=== PATIENT | female | born 1995 | race Two or more races ===

== ENCOUNTER 2019-07-03 20:08 | Emergency (ER) | payer OTHER ==
[~2019-07-03] VITALS: Ht 165.1 cm; Wt 81.6 kg
[2019-07-03] MEDS ORDERED: LEVOTHYROXINE25 MCG (20:29)
== END 2019-07-03 22:44 | disposition home or self-care (01) ==
LOC: ER 20:08
DX: J00 Acute nasopharyngitis [common cold] (principal)

== ENCOUNTER 2023-04-15 19:37 | Emergency (ER) | payer OTHER ==
[~2023-04-15] VITALS: Ht 165.1 cm; Wt 88.5 kg
[~2023-04-15 19:37] MED LIST: LEVOTHYROXINE25 MCG
[2023-04-15 21:14] LABS: HEMATOCRIT 35.4 % (36.0-45.00); MEAN CELL VOLUME 78.7 fL (80.00-100.00); MEAN CORPUSCULAR HEMOGLOBIN 26.6 pg (27.00-32.0); MEAN CORPUSCULAR HGB CONC 33.8 g/dl (32.0-36.0); PLATELET COUNT 432 K/uL (150-450); RED BLOOD COUNT 4.49 M/uL (4.00-6.00); RED CELL DISTRIBUTION WIDTH 16.8 % (11.5-14.5)
[2023-04-15 21:27] LABS: PH,URINE 5.5 (5.0-8.0); URINE APPEARANCE Clear; URINE BILIRRUBIN Negative (NEGATIVE); URINE BLOOD Negative; URINE COLOR Yellow; URINE GLUCOSE Negative (NEGATIVE); URINE LEUKOCYTE Negative; URINE NITRATE Negative; URINE PROTEIN Negative (NEGATIVE); URINE UROBILINOGEN 0.2 E.U./dl
[2023-04-15 21:28] LABS: URINE BACTERIA 1121.3 uL (0.0-1933); URINE EPITHELIAL CELLS 6.4 uL (0.0-38.8); URINE RBC 7.1 uL (0.0-20.8); URINE WBC 10.3 uL (0.0-23.2)
[2023-04-15 21:34] LABS: ALT/SGPT 18 U/L (12-78); ANION GAP 9 (10.0-20.0); AST/SGOT 16 U/L (15-37); BILIRUBIN TOTAL 0.21 mg/dL (0.3-1.2); BILIRUBIN,CONJUGATED < 0.10 mg/dL (0.0-0.2); BILIRUBIN,UNCONJUGATED 0.11 mg/dL (0.0-0.6); BLOOD UREA NITROGEN 18 mg/dL (7-18); BUN CREA RATIO 16 (7.0-25.0); CALCIUM 8.9 mg/dL (8.5-10.1); CARBON DIOXIDE 26 mEq/L (21-32); CHLORIDE 105 mmol/L (98-107); CREATININE SERUM 1.13 mg/dL (0.55-1.02); GFR 57.76; GLUCOSE FASTING 95 mg/dL (65-100); LIPASE 31 U/L (13-75); OSMOLALITY SERUM 276 MOSM/KG (275-295); SODIUM 137 mmol/L (136-145)
[2023-04-15] MEDS ORDERED: DICLOFENAC POTA50 MG PO (23:01)
[2023-04-15] MEDS ORDERED: NORFLEX100MG PO (23:01)
[2023-04-15] MEDS ORDERED: PEPCID AC20 MG PO (23:03)
[2023-04-15] MEDS ORDERED: LEVSIN0.125 MG PO (23:03)
== END 2023-04-15 23:22 | disposition home or self-care (01) ==
LOC: ER 19:38
PROVIDERS: General Practice
DX: R10.84 Generalized abdominal pain (principal); M94.0 Chondrocostal junction syndrome [Tietze]